=== PATIENT | male | born 1990 | race African-American/Black ===

== ENCOUNTER 2016-12-31 14:48 | Emergency (ER) | payer OTHER ==
[2016-12-31 15:08] VITALS: BP 136/68; PULSE 70; RESP 18; TEMP 98
[2016-12-31] MEDS ORDERED: ONDANSETRON 4 MG ODT STARTER PACK 2 TAB BTL PO STA (15:19)
--- NOTE | 2016-12-31 15:21 | ED ---
General Adult HPI - General Chief complaint: Nausea/Vomiting/Diarrhea Stated complaint: Vomiting Time Seen by Provider: 12/31/16 15:06 Source: patient, RN notes reviewed Mode of arrival: ambulatory Limitations: no limitations - History of Present Illness Initial comments: Patient 26-year-old male who presents emergency room today with chief complaint of symptoms of nausea vomiting diarrhea times one day. 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 States that a few episodes of nausea vomiting diarrhea. Denies any signs of blood or in the stool or emesis. Patient does admit some cramping type abdominal pain. Denies any other complaints associated symptoms. States he had cough work today. Patient denies any recent fever, chills, shortness of breath, chest pain, back pain, numbness or tingling, dysuria or hematuria, constipation, headaches or visual changes, or any other complaints. - Related Data Previous Rx's Medication Instructions Recorded Cyclobenzaprine [Flexeril] 10 mg PO TID PRN #20 tablet 03/11/15 Naproxen [Naprosyn] 500 mg PO Q12HR PRN #20 tab 03/11/15 Ondansetron Odt [Zofran ODT] 4 mg PO Q8HR PRN #20 tab 12/31/16 Allergies Allergy/AdvReac Type Severity Reaction Status Date / Time diphenhydramine HCl Allergy Rash/Hives Verified 12/31/16 15:08 [From Benadryl] Review of Systems ROS Statement: Those systems with pertinent positive or pertinent negative responses have been documented in the HPI. ROS Other: All systems not noted in ROS Statement are negative. Past Medical History Past Medical History: Hyperlipidemia History of Any Multi-Drug Resistant Organisms: None Reported Past Surgical History: No Surgical Hx Reported Additional Past Surgical History / Comment(s): circumcision at age 12 Past Psychological History: Bipolar Smoking Status: Current every day smoker Past Alcohol Use History: None Reported Past Drug Use History: None Reported General Exam - General Exam Comments Initial Comments: General: The patient is awake and alert, in no distress, and does not appear acutely ill. Eye: Pupils are equal, round and reactive to light, extra-ocular movements are intact. No nystagmus. There is normal conjunctiva bilaterally. No signs of icterus. Ears, nose, mouth and throat: There are moist mucous membranes and no oral lesions. Neck: The neck is supple, there is no tenderness or JVD. Cardiovascular: There is a regular rate and rhythm. No murmur, rub or gallop is appreciated. Respiratory: Lungs are clear to auscultation, respirations are non-labored, breath sounds are equal. No wheezes, stridor, rales, or rhonchi. Gastrointestinal: Soft, non-distended, non-tender abdomen without masses or organomegaly noted. There is no rebound or guarding present. No CVA tenderness. Bowel sounds are unremarkable. Musculoskeletal: Normal ROM, no tenderness. Strength 5/5. Sensation intact. Pulses equal bilaterally 2+. Neurological: A&O x 3. CN II-XII intact, There are no obvious motor or sensory deficits. Coordination appears grossly intact. Speech is normal. Skin: Skin is warm and dry and no rashes or lesions are noted. Psychiatric: Cooperative, appropriate mood & affect, normal judgment. Limitations: no limitations Course Vital Signs 12/31/16 15:06 Temperature 98.0 F Pulse Rate 70 Respiratory 18 Rate Blood Pressure 136/68 O2 Sat by Pulse 94 L Oximetry Medical Decision Making - Medical Decision Making Patient examined here in the emergency room shows no signs of distress. Does admit to symptoms of nausea vomiting diarrhea that started last night. No signs of dehydration here in the emergency room. He is tolerating liquids. Patient will be discharged home with nausea medication.. Use Imodium for diarrhea as needed. Advised return to emergency room if symptoms increase or worsen or for any other concerns. Patient states understanding and is in agreement. Disposition Clinical Impression: Nausea vomiting and diarrhea Disposition: HOME SELF-CARE Condition: Good Instructions: Gastroenteritis (ED) Additional Instructions: Please use medication as discussed. Please follow-up with family doctor in the next 2 days of symptoms have not improved. Please return to emergency room if the symptoms increase or worsen or for any other concerns. Prescriptions: Ondansetron Odt [Zofran ODT] 4 mg PO Q8HR PRN #20 tab PRN Reason: Nausea Referrals: Helder Reynoso MD [Primary Care Provider] - 1-2 days Time of Disposition: 15:21
== END 2016-12-31 15:40 | disposition home or self-care (01) ==
LOC: EC 14:48 → SUPCPDRO 14:48 → EC 15:40
DX: R11.2 Nausea with vomiting, unspecified (principal); R19.7 Diarrhea, unspecified; R05 Cough; R10.9 Unspecified abdominal pain; F17.200 Nicotine dependence, unspecified, uncomplicated; Z88.8 Allergy status to other drugs, medicaments and biological substances
CPT/HCPCS: 99283; S0119

== ENCOUNTER → 2017-06-15 | Outpatient (CLI) | payer OTHER ==
--- NOTE | 2017-06-15 21:36 | MR ---
EXAMINATION TYPE: MR brain wo/w con DATE OF EXAM: 06/15/2017 COMPARISON: NONE HISTORY: Hx of Seizures. Epilepsy protocol. TECHNIQUE: Multiplanar, multisequence images of the brain and brainstem is performed without and with IV contras t, utilizing 11 mL intravenous Gadavist . FINDINGS: Diffusion weighted images demonstrate no evidence of a recent infarct or other diffusion ab normality. There is no extra-axial fluid collection or significant white matter signal abnormality. The ventricular system and cisternal spaces are normal in size and appearance. The brain volume is age appropriate. Midline structures demonstrate normal morphology. The craniocervical junction appears within normal limits. Post contrast images demonstrate no abnormal enhancement. The dural venous sinuses appear pa tent. There is large mucous retention cyst or polyp completely filling the right maxillary sinus and extending into antrum appears to have enhancing nodular component posterior aspect floor of sinus see n best sagittal image 100. Remainder of paranasal sinuses are clear. No suspicious bony destruction i dentified. IMPRESSION: 1. No suspicious finding is seen to patient's symptoms of seizures. 2. Incidental right maxillary sinus lesion with enhancing component inferiorly of uncertain etiology. No suspicious cortical destruction seen. ENT referral advised.
--- NOTE | 2017-06-15 21:42 | MR ---
EXAMINATION TYPE: MR yudy/lspine wo con DATE OF EXAM: 06/15/2017 COMPARISON: Cervical spine x-ray March 11, 2015. HISTORY: Cervicalgia and lumbago per order. Sharp back pain for 4 years into right thigh per patient. Headache with sharp neck pain causing tingling and numbness into right arm and fingers for 2 years p er patient. TECHNIQUE: Multiplanar, multisequence imaging of the cervical and lumbar spine are performed without IV contrast. FINDINGS: C-SPINE: FINDINGS: Sagittal images of the cervical spine show the craniocervical junction to appear within nor mal limits. The cervical and upper thoracic spinal cord is normal in course, caliber, and signal. V ertebral alignment is anatomic. The vertebral body and intravertebral disk heights are normal. No s uspicious posterior disc herniations are seen on sagittal images. The bone marrow signal intensity is within normal limits. No significant spurring is noted. Axial images show there is no significant focal disk disease, spinal canal stenosis, neural foraminal narrowing, or spinal cord compromise at any cervical level. IMPRESSION: Unremarkable study, no significant abnormality is seen to account for patient's clinical symptoms. L-SPINE: Sagittal images of the lumbar spine show vertebral body heights and alignment to appear satisfactory. There is disc desiccation at L5-S1 level otherwise the intervertebral discs demonstrate normal heigh ts and hydration. Small posterior disc herniation L5-S1 level as seen on sagittal images . The conus medullaris is normal in position and signal ending at T12-L1 disc space level. The bone marrow signa l intensity is within normal limits. No significant spurring is present. Axial images show the T12-L1, L1-L2, L2-L3, L3-L4, and L4-L5 levels all to appear within normal limit s. Axial images at L5-S1 level shows broad-based right paracentral disc protrusion with increased signal posteriorly consistent with annular tear. There is minimal effacement of the anterior thecal sac. Ri ght-sided neural foramen is mildly narrowed. Left-sided neural foramen is patent. No suspicious retroperitoneal findings are seen. Paraspinal muscle bulk is maintained. IMPRESSION: Disc desiccation with disc herniation and annular tear L5-S1 level minimally effacing ant erior thecal sac and causing mild right-sided neural foraminal narrowing
== END | disposition home or self-care (01) ==
LOC: RADMRIMAIN 17:02
PROVIDERS: ATTEND Psychiatry & Neurology Pain Medicine
DX: M99.73 Connective tissue and disc stenosis of intervertebral foramina of lumbar region (principal); M51.27 Other intervertebral disc displacement, lumbosacral region; G40.909 Epilepsy, unspecified, not intractable, without status epilepticus; M54.2 Cervicalgia
CPT/HCPCS: 70553; 72141; 72148; A9581